=== PATIENT | male | born 1970 ===

== ENCOUNTER 2017-05-14 11:16 | Emergency (ER) | payer BC ==
[2017-05-14 11:22] VITALS: BP 130/76; PULSE 87; RESP 18; TEMP 98.7; O2SAT 99
--- NOTE | 2017-05-14 11:56 | C.PDOC ---
History Of Present Illness 47 year old male presents to the ED for evaluation after he sustained an injury to his right inner thigh after falling into a hole 2 days ago. Patient has not taken any medicine but has been applying ice to the area with minimal relief. Patient denies head injury, LOC, extremity numbness/weakness, or ankle pain. Time Seen by Provider: 05/14/17 11:26 Chief Complaint (Nursing): Lower Extremity Problem/Injury History Per: Patient History/Exam Limitations: no limitations Onset/Duration Of Symptoms: Days (2) Current Symptoms Are (Timing): Still Present Additional History Per: Patient - Knee Description Of Injury: Fell Alleviating Factor(s): Ice Therapy. denies: OTC Pain Medication Past Medical History Reviewed: Historical Data, Nursing Documentation, Vital Signs Vital Signs: Last Vital Signs Temp 98.7 F 05/14/17 11:21 Pulse 87 05/14/17 11:21 Resp 18 05/14/17 11:21 BP 130/76 05/14/17 11:21 Pulse Ox 99 05/14/17 12:25 - Medical History PMH: No Chronic Diseases Surgical History: No Surg Hx Family History: States: Unknown Family Hx - Social History Hx Alcohol Use: No Hx Substance Use: No - Immunization History Hx Tetanus Toxoid Vaccination: No Hx Influenza Vaccination: No Hx Pneumococcal Vaccination: No Review Of Systems Musculoskeletal: Positive for: Leg Pain (right, inner) Neurological: Negative for: Other (head injury/LOC ) Physical Exam - Physical Exam Appears: Non-toxic, No Acute Distress Skin: Warm, Dry, Ecchymosis (13x7cm area to right medial thigh ), Other ( hematoma right thigh) Head: Atraumatic, Normacephalic Eye(s): bilateral: Normal Inspection Extremity: Normal ROM, Tenderness (medial aspect of right thigh ), No Calf Tenderness, Capillary Refill (less than 2 seconds ), No Deformity, Other Neurological/Psych: Oriented x3, Normal Speech Gait: Steady ED Course And Treatment O2 Sat by Pulse Oximetry: 99 (on RA) Pulse Ox Interpretation: Normal Medical Decision Making Medical Decision Making: Patient with ecchymosis to right leg after fall. Knee is nontender with normal ROM. Patient does not want xray, states he can walk and bend knee without problem and wants pain medicine. Patient is advised to apply ice/heat to the area for pain relief and is advised to follow up with his PMD within 1-2 days for further evaluation. Disposition Counseled Patient/Family Regarding: Diagnosis, Need For Followup - Disposition Disposition: HOME/ ROUTINE Disposition Time: 11:52 Condition: STABLE Additional Instructions: Apply heat or ice to the area 2-3 times per day. Take Motrin for pain as needed, with food to not upset stomach. Follow up with your doctor Prescriptions: Ibuprofen [Motrin] 600 mg PO Q8 #30 tab Instructions: Contusion in Adults (ED) Forms: [email or web address]. (Kittitian) - POA Present On Arrival: None - Clinical Impression Clinical Impression: Contusion of leg, right, Hematoma of leg - PA / BRANCH MECH[employer]IC / Resident Statement MD/DO has reviewed & agrees with the documentation as recorded. - Scribe Statement The provider has reviewed the documentation as recorded by the Scribe All medical record entries made by the Scribe were at my direction and personally dictated by me. I have reviewed the chart and agree that the record accurately reflects my personal performance of the history, physical exam, medical decision making, and the department course for this patient. I have also personally directed, reviewed, and agree with the discharge instructions and disposition.
== END 2017-05-14 12:09 | disposition home or self-care (01) ==
LOC: C.ER 11:16
DX: S70.11XA Contusion of right thigh, initial encounter (principal); W17.2XXA Fall into hole, initial encounter

== ENCOUNTER 2017-05-18 21:19 | Observation (INO) | payer BC ==
[2017-05-18] MEDS ORDERED: Sodium Chloride 0.9% 1,000 ML IV ONE (22:14)
--- NOTE | 2017-05-18 23:00 | C.PDOC ---
History Of Present Illness 47 year old male presents to the ER with a complaint of pain to the right lower extremity. Denies weakness of the extremity or other recent injury. Patient was seen here on 05/14/17 with the same pain after he fell in a hole on the street. At the time, he was found to have a 13x7cm area of ecchymosis to the medial thight with tenderness. Patient refused an x-ray but it was documented that he was able to walk and bend his knee at the time. However, patient states he cannot ambulate now and has swelling with multiple areas of contusion and ecchymosis, and reports numbness and increased swelling to the medial aspect of the right lower leg. Time Seen by Provider: 05/18/17 21:53 Chief Complaint (Nursing): Lower Extremity Problem/Injury History Per: Patient History/Exam Limitations: no limitations Onset/Duration Of Symptoms: Days Current Symptoms Are (Timing): Still Present Recent travel outside of the [place]: No Past Medical History Reviewed: Historical Data, Nursing Documentation, Vital Signs Vital Signs: Last Vital Signs Temp 98.4 F 05/18/17 21:25 Pulse 80 05/18/17 21:25 Resp 18 05/18/17 21:25 BP 117/74 05/18/17 21:25 Pulse Ox 98 05/19/17 05:35 - Medical History PMH: No Chronic Diseases Family History: States: Unknown Family Hx - Social History Hx Alcohol Use: No Hx Substance Use: No - Immunization History Hx Tetanus Toxoid Vaccination: No Hx Influenza Vaccination: No Hx Pneumococcal Vaccination: No Review Of Systems Constitutional: Negative for: Fever Eyes: Negative for: Pain ENT: Negative for: Ear Pain, Nose Congestion, Mouth Pain, Mouth Swelling, Throat Pain Cardiovascular: Negative for: Chest Pain, Palpitations, Orthopnea, Paroxysmal Noc. Dyspnea Respiratory: Negative for: Cough, Shortness of Breath, Hemoptysis Gastrointestinal: Negative for: Nausea, Abdominal Pain Genitourinary: Negative for: Dysuria Musculoskeletal: Positive for: Leg Pain. Negative for: Back Pain Skin: Positive for: Other (Ecchymosis, contusions) Neurological: Positive for: Numbness. Negative for: Weakness Physical Exam - Physical Exam Appears: Non-toxic Skin: Warm, Dry Head: Atraumatic, Normacephalic Eye(s): bilateral: Normal Inspection Ear(s): Bilateral: Normal Nose: Normal Oral Mucosa: Moist Tongue: Normal Appearing Lips: Normal Appearing Teeth: Normal Dentition Gingiva: Normal Appearing Neck: Normal, No Midline Cervical Tenderness, No Paracervical Tenderness, Supple Chest: Symmetrical, No Tenderness Cardiovascular: Rhythm Regular Respiratory: Normal Breath Sounds, No Rales, No Rhonchi, No Wheezing Gastrointestinal/Abdominal: Soft, No Tenderness Extremity: Other (No tenderness, full ROM of right hip, and normal flexion and extension of right knee. Muliple areas of ecchymosis and contusion above the right knee, 5cm diameter abrasion just below medial aspect of the right knee surrounded by area of ecchymosis and contusion, right leg and right foot is swollen with multiple contusions and ecchymosis. ) Extremity: Left: Atraumatic (right LE with mulitple contusions and ecchymoses), No Pedal Edema, Painful To Bear Weight, Right: Other Neurological/Psych: Oriented x3, Normal Speech, Normal Motor, Other (Objective numbness along medial aspect of leg at the L5 dermatome.) ED Course And Treatment - Laboratory Results Result Diagrams: 05/18/17 23:51 05/18/17 23:51 O2 Sat by Pulse Oximetry: 98 (Room air) Pulse Ox Interpretation: Normal - CT Scan/US CT Right Lower Extremity Other Rad Studies (CT/US): Read By Radiologist, Radiology Report Reviewed CT/US Interpretation: EXAM: CT Right Lower Extremity With Intravenous Contrast. EXAM DATE/TIME: 05/19/2017 3:06 AM. CLINICAL HISTORY: 47 years old, male; Signs and symptoms; Swelling, leg or foot; Additional info: Trauma. Bruising from. mid thigh to foot. TECHNIQUE: Axial computed tomography images of the right lower extremity with intravenous contrast. All CT. scans at this facility use one or more dose reduction techniques, viz.: automated exposure control;. ma/kV adjustment per patient size (including targeted exams where dose is matched to indication; i.e. head); or iterative reconstruction technique. Coronal and sagittal reformatted images were created and reviewed. CONTRAST: 100 mL of [id number] administered intravenously. COMPARISON: No relevant prior studies available. FINDINGS: BONES/JOINTS: No acute fractures are seen. No evidence of acute dislocation. No radiographic. evidence of significant joint effusion. Joint spaces are preserved. SOFT TISSUES: Multiple masslike areas seen in the lateral and anterolateral leg soft tissues, at the. level of the knee and proximal tibia. These are localized to the subcutaneous fat, and composed of. soft tissue density. They are heterogeneous in density, but overall hyperdense, measuring up to 50. Hounsfield units, and are are round to ovoid in shape. Findings are most compatible with multiple. soft tissue hematomas. The largest of these is located in the anterolateral soft tissues, abutting the. proximal tibia, and measures 5.5 x 2.8 x 5 cm. Diffuse subcutaneous edema. This is greatest in the distal calf and ankle. No evidence of soft tissue gas. No evidence of a focal soft tissue abscess. No evidence of acute. intramuscular hematoma. Note that the extremity soft tissues, such as the tendons and ligaments, are. suboptimally evaluated by CT compared with MRI. IMPRESSION: - Findings compatible with multiple soft tissue hematomas in the lateral/anterolateral soft. tissues at the level of the knee and proximal tibia, the largest measuring 5.5 x 5 cm. Please see. above for a full description. - Diffuse subcutaneous edema. - No acute fractures or other acute bony abnormality visualized. - See above for remaining findings. Medical Decision Making Medical Decision Making: Plan: * CMP * CBC * Right ankle x-ray * Right foot x-ray * Right femur x-ray * Right tib/fib x-ray * IV fluids * Morpine Dimer ordered, results not elevated; will order CT right lower extremity. No fractures on plain films. d-dimer neg. ct shows multiple soft tissue hematomas in the lateral/anterolateral soft tissues at the knee and prox tibia .diffuse subcutaneous emphezema. three calls placed to orthopedics balance wheel motion inspector-Dr. He. Pending call back. Disposition Counseled Patient/Family Regarding: Diagnosis - Disposition Disposition Time: 06:58 Condition: FAIR Forms: [facility] (Polish) - Clinical Impression Clinical Impression: Leg pain, right, Right leg swelling, Contusion of leg, right, Hematoma of leg - Scribe Statement The provider has reviewed the documentation as recorded by the Scribfranca Keenan All medical record entries made by the Scribe were at my direction and personally dictated by me. I have reviewed the chart and agree that the record accurately reflects my personal performance of the history, physical exam, medical decision making, and the department course for this patient. I have also personally directed, reviewed, and agree with the discharge instructions and disposition.
[2017-05-18 23:54] LABS: BASO # 0.1 K/uL (0.0-0.2); BASO % 0.8 % (0.0-2.0); EOS # 0.2 K/uL (0.0-0.7); EOS % 2.2 % (0.0-4.0); HEMOGLOBIN 11.9 g/dL (12.0-18.0); LYMPH # 2.4 K/uL (1.0-4.3); LYMPH % 32.2 % (20.0-40.0); MEAN CORPUSCULAR HEMOGLOBIN 29.9 pg (27.0-31.0); MEAN CORPUSCULAR HGB CONC 34.4 g/dL (33.0-37.0); MEAN PLATELET VOLUME 8.8 fL (7.2-11.7); MONO # 0.8 K/uL (0.0-0.8); MONO % 10.2 % (0.0-10.0); NEUT # 4.1 K/uL (1.8-7.0); NEUT % 54.6 % (50.0-75.0); RBC 3.97 Mil/uL (4.40-5.90); RED CELL DISTRIBUTION WIDTH 13.8 % (11.5-14.5); WHITE BLOOD COUNT 7.4 K/uL (4.8-10.8)
[2017-05-19 00:08] LABS: ALB/GLOB RATIO 1.3 (1.0-2.1); ALBUMIN 3.8 g/dL (3.5-5.0); ALT/SGPT 23 U/L (21-72); AST/SGOT 25 U/L (17-59); BLOOD UREA NITROGEN 19 mg/dL (9-20); GFR AFRICAN-AMERICAN > 60; GFR NON-AFRICAN AMERICAN > 60
[2017-05-19] MEDS ORDERED: Iodixanol 320 MG/ML 100 ML BOTTLE IV ONE (03:36)
--- NOTE | 2017-05-19 05:23 | CT ---
EXAM: CT Right Lower Extremity With Intravenous Contrast EXAM DATE/TIME: 05/19/2017 3:06 AM CLINICAL HISTORY: 47 years old, male; Signs and symptoms; Swelling, leg or foot; Additional info: Trauma. Bruising from mid thigh to foot. TECHNIQUE: Axial computed tomography images of the right lower extremity with intravenous contrast. All CT scans at this facility use one or more dose reduction techniques, viz.: automated exposure control; ma/kV adjustment per patient size (including targeted exams where dose is matched to indication; i.e. head); or iterative reconstruction technique. Coronal and sagittal reformatted images were created and reviewed. CONTRAST: 100 mL of [id number] administered intravenously. COMPARISON: No relevant prior studies available. FINDINGS: BONES/JOINTS: No acute fractures are seen. No evidence of acute dislocation. No radiographic evidence of significant joint effusion. Joint spaces are preserved. SOFT TISSUES: Multiple masslike areas seen in the lateral and anterolateral leg soft tissues, at the level of the knee and proximal tibia. These are localized to the subcutaneous fat, and composed of soft tissue density. They are heterogeneous in density, but overall hyperdense, measuring up to 50 Hounsfield units, and are are round to ovoid in shape. Findings are most compatible with multiple soft tissue hematomas. The largest of these is located in the anterolateral soft tissues, abutting the proximal tibia, and measures 5.5 x 2.8 x 5 cm. Diffuse subcutaneous edema. This is greatest in the distal calf and ankle. No evidence of soft tissue gas. No evidence of a focal soft tissue abscess. No evidence of acute intramuscular hematoma. Note that the extremity soft tissues, such as the tendons and ligaments, are suboptimally evaluated by CT compared with MRI. IMPRESSION: - Findings compatible with multiple soft tissue hematomas in the lateral/anterolateral soft tissues at the level of the knee and proximal tibia, the largest measuring 5.5 x 5 cm. Please see above for a full description. - Diffuse subcutaneous edema. - No acute fractures or other acute bony abnormality visualized. - See above for remaining findings.
[2017-05-19 08:15] LABS: PROTHROMBIN TIME 11.1 SECONDS (9.7-12.2)
--- NOTE | 2017-05-19 08:30 | RAD ---
HISTORY: abd pain COMPARISON: None available. TECHNIQUE: Chest PA and lateral FINDINGS: Examination limited by habitus. LUNGS: No focal consolidation. Please note that chest x-ray has limited sensitivity for the detection of pulmonary masses. PLEURA: No significant pleural effusion identified. No definite pneumothorax . CARDIOVASCULAR: The cardiomediastinal silhouette appears within normal limits of size. OSSEOUS STRUCTURES: No acute osseous abnormality identified. VISUALIZED UPPER ABDOMEN: Unremarkable. OTHER FINDINGS: None. IMPRESSION: No focal consolidation, significant pleural effusion, or definite pneumothorax identified.
--- NOTE | 2017-05-19 08:46 | RAD ---
PROCEDURE: Radiographs of the right tibia and fibula. HISTORY: trauma COMPARISON: None available. TECHNIQUE: Frontal and lateral views obtained. FINDINGS: BONES: Bone alignment and mineralization are normal. There is no acute fracture or bone destruction. JOINT SPACES: Unremarkable. OTHER FINDINGS: There is an apparent 4.0 x 3.5 cm lobular density in the soft tissues medial to the medial tibial plateau. IMPRESSION: No acute fracture or dislocation. Lobular soft tissue density medial to the medial tibial plateau in the setting of acute trauma could represent an acute hematoma.
--- NOTE | 2017-05-19 09:05 | RAD ---
PROCEDURE: Right Foot Radiographs. HISTORY: TRAUMA COMPARISON: None. FINDINGS: BONES: Bone alignment and mineralization are normal. No acute fracture. There is a small plantar calcaneal spur. JOINTS: Normal. SOFT TISSUES: There is moderate dorsal soft tissue swelling. OTHER FINDINGS: None. IMPRESSION: No acute fracture or dislocation. Moderate dorsal soft tissue swelling.
--- NOTE | 2017-05-19 09:06 | RAD ---
PROCEDURE: Right Ankle Radiographs. HISTORY: Trauma COMPARISON: None FINDINGS: BONES: Bone alignment and mineralization are normal. There is no acute displaced fracture or bone destruction. JOINTS: Normal. No osteoarthritis. Ankle mortise maintained. Talar dome intact SOFT TISSUES: There is moderate periarticular soft tissue swelling. OTHER FINDINGS: None. IMPRESSION: No acute fracture or dislocation. Moderate periarticular soft tissue swelling.
--- NOTE | 2017-05-19 09:09 | RAD ---
PROCEDURE: Right Knee Radiographs. HISTORY: trauma COMPARISON: None. FINDINGS: BONES: Bone alignment and mineralization are normal. No acute fracture. JOINTS: Normal. JOINT EFFUSION: None. OTHER FINDINGS: There is a lobular soft tissue density medial to the medial tibial plateau which may represent a hematoma in the setting of acute trauma. IMPRESSION: No acute fracture or dislocation.
--- NOTE | 2017-05-19 09:10 | RAD ---
PROCEDURE: Right Femur Radiographs. HISTORY: Trauma COMPARISON: None. TECHNIQUE: AP and Lateral Radiographs of the right femur. FINDINGS: FEMUR: Bone alignment and mineralization are normal. No acute fracture. SOFT TISSUES: Normal. OTHER FINDINGS: None. IMPRESSION: No acute fracture or dislocation.
[2017-05-19] MEDS ORDERED: HYDROmorphone 1 mg/ml ISec IVP STA (10:15)
--- NOTE | 2017-05-19 11:03 | CP.PCM.CON ---
History of Present Illness - History of Present Illness History of Present Illness: Surgery Consult: 47 year old male who presents to the ED for right lower extremity pain. Patient states the pain started on Monday. He states he was walking on the street and it was partly covered with newspapers when he fell and the hole was deep that it covered above his knee. He state he then came to the ER on Monday05/14/17 because the pain progressed and his leg became swollen. They sent him home with Motrin the same day. He now returns to the ER because the pain has become worse and his foot is swollen to the point he can no longer put his shoes on. He also states he started to have some numbness on the anterior portion of his lower leg. He denies that his leg feels cold or a different temperature. He only places minor weight on his leg when he has to use the bathroom. 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 He denies fever, nausea, vomiting, or other complaints at this time. PMD: Denies Past Medical History: Denies Past Surgical History: Denies Medications: Denies Allergies: unknown medication he once took as a child for fever Social History: Lives at home with his ; works in a warehouse driving a machine; denies smoking, denies illicit drug use, drinks a 6 pack of beer on the weekends. Review of Systems - Constitutional Constitutional: absent: Chills, Fever, Headache - Cardiovascular Cardiovascular: absent: Chest Pain, Dyspnea - Respiratory Respiratory: absent: Dyspnea - Gastrointestinal Gastrointestinal: absent: Constipation, Diarrhea, Nausea, Vomiting - Genitourinary Genitourinary: absent: Dysuria - Musculoskeletal Musculoskeletal: Numbness (right lower extremity anterior ). absent: Tingling - Neurological Neurological: Paresthesias, Weakness. absent: Dizziness - Endocrine Endocrine: absent: Palpitations Past Patient History - Past Social History Smoking Status: Never Smoked - PSYCHIATRIC Hx Substance Use: No - SURGICAL HISTORY Hx Surgeries: No - ANESTHESIA Hx Anesthesia: No Meds Allergies/Adverse Reactions: Allergies Allergy/AdvReac Type Severity Reaction Status Date / Time No Known Allergies Allergy Verified 05/14/17 11:22 Physical Exam - Head Exam Head Exam: ATRAUMATIC, NORMAL INSPECTION - Eye Exam Eye Exam: EOMI, Normal appearance - ENT Exam ENT Exam: Mucous Membranes Moist - Respiratory Exam Respiratory Exam: Clear to Auscultation Bilateral, NORMAL BREATHING PATTERN. absent: Rales, Rhonchi, Wheezes, Stridor - Cardiovascular Exam Cardiovascular Exam: REGULAR RHYTHM, RRR, +S1, +S2 - GI/Abdominal Exam GI & Abdominal Exam: Normal Bowel Sounds, Soft. absent: Distended, Firm, Guarding, Rebound, Rigid, Tenderness - Extremities Exam Extremities exam: Positive for: calf tenderness, pedal edema, tenderness, pedal pulses present. Negative for: normal inspection Additional comments: right lower extremity swelling, erythema Compartment pressures: Anterior: 5; Deep Posterior 11; Superficial Posterior 20 ; Lateral 5 - Neurological Exam Neurological exam: Alert, Oriented x3 - Psychiatric Exam Psychiatric exam: Normal Affect, Normal Mood - Skin Skin Exam: Dry, Intact, Warm Additional comments: right lower extremity erythematous Results - Vital Signs Recent Vital Signs: Last Vital Signs Temp 98.7 F 05/19/17 08:51 Pulse 69 05/19/17 10:23 Resp 20 05/19/17 10:23 BP 115/76 05/19/17 10:23 Pulse Ox 100 05/19/17 10:23 - Labs Result Diagrams: 05/18/17 23:51 05/18/17 23:51 Labs: Laboratory Results - last 24 hr 05/18/17 05/18/17 05/19/17 23:51 23:51 01:42 WBC 7.4 RBC 3.97 L Hgb 11.9 L Hct 34.5 L MCV 87.0 MCH 29.9 MCHC 34.4 RDW 13.8 Plt Count 229 MPV 8.8 Neut % (Auto) 54.6 Lymph % (Auto) 32.2 [place] % (Auto) 10.2 H Eos % (Auto) 2.2 Baso % (Auto) 0.8 Neut # 4.1 Lymph # 2.4 [place] # 0.8 Eos # 0.2 Baso # 0.1 PT INR APTT D-Dimer, Quantitative 231 Sodium 136 Potassium 4.1 Chloride 101 Carbon Dioxide 31 H Anion Gap 8 L BUN 19 Creatinine 0.9 Est GFR ( Amer) > 60 Est GFR (Non-Af Amer) > 60 Random Glucose 75 Calcium 8.0 L Total Bilirubin 0.9 AST 25 ALT 23 Alkaline Phosphatase 89 Total Creatine Kinase Total Protein 6.7 Albumin 3.8 Globulin 2.9 Albumin/Globulin Ratio 1.3 05/19/17 05/19/17 08:00 08:00 WBC RBC Hgb Hct MCV MCH MCHC RDW Plt Count MPV Neut % (Auto) Lymph % (Auto) [place] % (Auto) Eos % (Auto) Baso % (Auto) Neut # Lymph # [place] # Eos # Baso # PT 11.1 INR 1.0 APTT 39 H D-Dimer, Quantitative Sodium Potassium Chloride Carbon Dioxide Anion Gap BUN Creatinine Est GFR ( Amer) Est GFR (Non-Af Amer) Random Glucose Calcium Total Bilirubin AST ALT Alkaline Phosphatase Total Creatine Kinase 95 Total Protein Albumin Globulin Albumin/Globulin Ratio Assessment & Plan - Assessment and Plan (Free Text) Assessment: 47 year old male who presents to the ED for right lower extremity pain. 1.) r/o compartment syndrome of right lower extremity - Compartment pressures: Anterior: 5; Deep Posterior 11; Superficial Posterior 20; Lateral 5 - All within normal limits - Elevation and compression - Continue pain management - No surgical intervention needed at this time Veena Riggins PGY-1
--- NOTE | 2017-05-19 13:15 | CP.PCM.HP ---
History of Present Illness - History of Present Illness History of Present Illness: pt fell his leg went into awhole few days ago came to [facility] went home leg got swalen and contusions hematomas came back evaluated by vascular surgeane dr delong govern tests don no compartment syndrome Present on Admission - Present on Admission Any Indicators Present on Admission: No Review of Systems - Review of Systems Systems not reviewed;Unavailable: Acuity of Condition - Constitutional Constitutional: As Per HPI - EENT Eyes: As Per HPI Ears: As Per HPI Nose/Mouth/Throat: As Per HPI - Cardiovascular Cardiovascular: As Per HPI - Respiratory Respiratory: As Per HPI - Gastrointestinal Gastrointestinal: As Per HPI - Reproductive: Male Reproductive:Male: As Per HPI - Musculoskeletal Additional comments: left leg swlen and echymostic - Integumentary Integumentary: As Per HPI - Neurological Neurological: As Per HPI - Psychiatric Psychiatric: As Per HPI - Endocrine Endocrine: As Per HPI - Hematologic/Lymphatic Hematologic: As Per HPI Past Patient History - Past Social History Smoking Status: Never Smoked - PSYCHIATRIC Hx Substance Use: No - SURGICAL HISTORY Hx Surgeries: No - ANESTHESIA Hx Anesthesia: No Meds Allergies/Adverse Reactions: Allergies Allergy/AdvReac Type Severity Reaction Status Date / Time No Known Allergies Allergy Verified 05/14/17 11:22 Physical Exam - Constitutional Appears: Non-toxic - Head Exam Head Exam: ATRAUMATIC - Eye Exam Eye Exam: Normal appearance - ENT Exam ENT Exam: Mucous Membranes Moist - Neck Exam Neck exam: Positive for: Normal Inspection - Respiratory Exam Respiratory Exam: NORMAL BREATHING PATTERN - Cardiovascular Exam Cardiovascular Exam: REGULAR RHYTHM - GI/Abdominal Exam GI & Abdominal Exam: Normal Bowel Sounds - Rectal Exam Rectal Exam: Deferred - Extremities Exam Additional comments: leg swalen and contusions - Back Exam Back exam: NORMAL INSPECTION - Neurological Exam Neurological exam: Normal Gait - Psychiatric Exam Psychiatric exam: Normal Mood - Skin Skin Exam: Normal Color Results - Vital Signs Recent Vital Signs: Last Vital Signs Temp 98.7 F 05/19/17 08:51 Pulse 69 05/19/17 10:23 Resp 20 05/19/17 10:23 BP 115/76 05/19/17 10:23 Pulse Ox 100 05/19/17 10:23 - Labs Result Diagrams: 05/18/17 23:51 05/18/17 23:51 Labs: Laboratory Results - last 24 hr 05/18/17 05/18/1705/19/18 23:51 23:51 01:42 WBC 7.4 RBC 3.97 L Hgb 11.9 L Hct 34.5 L MCV 87.0 MCH 29.9 MCHC 34.4 RDW 13.8 Plt Count 229 MPV 8.8 Neut % (Auto) 54.6 Lymph % (Auto) 32.2 Roberts % (Auto) 10.2 H Eos % (Auto) 2.2 Baso % (Auto) 0.8 Neut # 4.1 Lymph # 2.4 Roberts # 0.8 Eos # 0.2 Baso # 0.1 PT INR APTT D-Dimer, Quantitative 231 Sodium 136 Potassium 4.1 Chloride 101 Carbon Dioxide 31 H Anion Gap 8 L BUN 19 Creatinine 0.9 Est GFR ( Amer) > 60 Est GFR (Non-Af Amer) > 60 Random Glucose 75 Calcium 8.0 L Total Bilirubin 0.9 AST 25 ALT 23 Alkaline Phosphatase 89 Total Creatine Kinase Total Protein 6.7 Albumin 3.8 Globulin 2.9 Albumin/Globulin Ratio 1.3 05/19/17 05/19/17 08:00 08:00 WBC RBC Hgb Hct MCV MCH MCHC RDW Plt Count MPV Neut % (Auto) Lymph % (Auto) Roberts % (Auto) Eos % (Auto) Baso % (Auto) Neut # Lymph # Roberts # Eos # Baso # PT 11.1 INR 1.0 APTT 39 H D-Dimer, Quantitative Sodium Potassium Chloride Carbon Dioxide Anion Gap BUN Creatinine Est GFR ( Amer) Est GFR (Non-Af Amer) Random Glucose Calcium Total Bilirubin AST ALT Alkaline Phosphatase Total Creatine Kinase 95 Total Protein Albumin Globulin Albumin/Globulin Ratio Assessment & Plan - Assessment and Plan (Free Text) Assessment: s/p trauma leg contusions Plan: d/c pt home f/u in my office next weeke - Date & Time Date: 05/19/17 Time: 13:19
[2017-05-19 17:10] VITALS: BP 110/68; PULSE 70; RESP 19; TEMP 98.8; O2SAT 99
== END 2017-05-19 16:20 | disposition home or self-care (01) ==
LOC: C.ER 21:19 → C.9E 05-19 07:23
PROVIDERS: ADMIT Internal Medicine; ATTEND Internal Medicine
DX: S80.11XA Contusion of right lower leg, initial encounter (principal); W17.2XXA Fall into hole, initial encounter; Y93.01 Activity, walking, marching and hiking; Y92.413 State road as the place of occurrence of the external cause
CPT/HCPCS: 71046; 73551; 73562; 73590; 73610; 73630; 73701; 80053; 82550; 85025; 85378; 85610; 85730; 96360; 96372; 96374; 99285; G0378; J1170; J2270; J7040; Q9967